=== PATIENT | female | born 1985 | race Caucasian/White ===

== ENCOUNTER 2022-03-04 06:34 | Emergency (ER) | payer BC, OTHER ==
[~2022-03-04] VITALS: Ht 152.4 cm; Wt 54.4 kg
[2022-03-04] MEDS ORDERED: TAMS0.4C PO (10:43)
[2022-03-04] MEDS ORDERED: KETO10TA2 PO (10:43)
== END 2022-03-04 10:56 | disposition home or self-care (01) ==
LOC: ER 06:34
DX: N23 Unspecified renal colic (principal)

== ENCOUNTER 2022-03-05 21:47 | Emergency (ER) | payer BC, OTHER ==
[~2022-03-05] VITALS: Ht 152.4 cm; Wt 54.9 kg
[~2022-03-05 21:47] MED LIST: KETO10TA2 PO; TAMS0.4C PO
== END 2022-03-06 01:11 ==
LOC: ER 21:47
DX: N20.9 Urinary calculus, unspecified (principal)